=== PATIENT | male | born 1945 | race Caucasian/White ===

== ENCOUNTER 2017-03-18 08:30 | Day surgery (SDC) | payer MEDICARE, OTHER ==
[~2017-03-18] VITALS: Ht 172.7 cm; Wt 94.0 kg
[2017-03-18] VITALS (8 sets, daily range): BP systolic 118–135; BP diastolic 61–81; PULSE 69–83; RESP 15–25; O2SAT 93–100
[~2017-03-18 08:30] MED LIST: AMLO5TAB2 PO; ASPI-973 PO; CETI10CA PO; CITA20TA11 PO; DONE10TA42 PO; LISI-571 PO; Levofloxacin 500 mg/100 mL D5W IV SCH; MEMA1CAP3 PO; METH5TAB5 PO; PYRI60TA2 PO; RED600CA2 PO; TADA20TA PO; TIOT18CA3 IH; VALA1000 PO
[2017-03-18] MEDS ORDERED: fentaNYL-PF 50 mCg/mL 2 mL Inj ONE (08:31)
[2017-03-18] MEDS ORDERED: Propofol 10,000 mCg/mL 20 mL Inj ONE (08:31)
[2017-03-18] MEDS ORDERED: Ondansetron 2 mg/mL 2 mL Inj ONE (08:31)
[2017-03-18] MEDS ORDERED: Dexamethasone 4 mg/mL Inj ONE (08:31)
[2017-03-18] MEDS ORDERED: Lidocaine PF 1% 30 mL Inj ONE (08:31)
[2017-03-18] MEDS: Lactated Ringer's 1,000 ML IV SCH ×2 (09:19→10:51)
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
[2017-03-18] MEDS ORDERED: Lactated Ringer's 500 ML IV PRN (10:38)
[2017-03-18] MEDS ORDERED: Lactated Ringer's 1,000 ML IV SCH (10:38)
[2017-03-18] MEDS ORDERED: Labetalol 5 mg/mL 4 mL Inj IV PRN (10:40)
[2017-03-18] MEDS ORDERED: fentaNYL-PF 50 mCg/mL 2 mL Inj IVPUSH PRN (10:40)
[2017-03-18] MEDS ORDERED: EPHEDrine Sulfate 50 mg/mL Inj IM PRN (10:40)
[2017-03-18] MEDS ORDERED: hydrALAZINE 20 mg/mL Inj IVPUSH PRN (10:40)
[2017-03-18] MEDS ORDERED: HYDROmorphone 1 mg/mL Inj IVPUSH PRN (10:40)
[2017-03-18] MEDS ORDERED: Atropine 0.4 mg/mL Inj IVPUSH PRN (10:40)
[2017-03-18] MEDS ORDERED: EPHEDrine Sulfate 50 mg/mL Inj IVPUSH PRN (10:40)
[2017-03-18] MEDS ORDERED: Phenylephrine 10,000 mCg/mL Inj IVPUSH PRN (10:40)
[2017-03-18] MEDS ORDERED: Ondansetron 2 mg/mL 2 mL Inj IVPUSH PRN (10:40)
[2017-03-18] MEDS ORDERED: Belladonna Alk-Opium 60 mg Rectal Suppository RECTAL ONE ×2 (11:02→11:20)
--- NOTE | 2017-03-18 11:32 | PCM.SURGPO ---
Immediate Operative Note Date of Surgery: March 18, 2017 Pre Operative Diagnosis L ureteral calculus Post Operative Diagnosis L ureteral calculus Procedure Cystoscopy, L ureteroscopy with basket extraction of calculus, and L ureteral stent placement Surgeon and Academy Education Director Surgeon: Deon Merida MD Assistants: None Findings Cystoscopy revealed mild-moderate bilobar prostatic hypertrophy, mild- moderately trabeculated bladder, no bladder tumors or lesions, and B/L ureteral orifices in normal position. L semi-rigid ureteroscopy revealed an approx. 3mm calculus in L distal ureter. Basket extraction of calculus was performed. L ureteral stent was placed. Complications There were no periprocedural complications identified. Surgical Specimen Removed: Yes Specimen sent to Pathology: No Surgical Specimen description: L ureteral calculus sent to lab for stone analysis Anesthetic Administered: GA Grafts, Implants: Other (28cm x 5F L ureteral JJ stent (no string)) Output, Estimated Blood Loss: <5 Blood Admin during surgery: No Additional information Patient to return to see me in 5-8 days for cystoscopy, stent removal, and post- op visit. Deon Merida MD March 18, 2017 11:31
--- NOTE | 2017-03-18 11:38 | PCM.DISURG ---
Surgical Discharge Instruction Date of Service March 18, 2017 Dates of Hospitalization Date of Hospital Admission March 18, 2017 Providers Admitting Physician: Deon Merida MD Primary Care Physician: Ta Richardson MD Attending Physician: Deon Merida MD Discharge Diagnosis Discharge Diagnosis L ureteral calculus Post Operative diagnosis L ureteral calculus Diet Discharge Diet: No restrictions, Other (Drink at least 10-12 8oz. glasses (3 liters) of fluids per day) Activity Discharge Activity-General: Try not to overdue, No driving while taking narcotic Dressing and Incisional Care Hygiene: March shower Follow Up Plan Follow-up Provider (F9): Deon Merida MD Follow-up appointment: Days (5-8 days for cystoscopy, stent removal, and post- op visit) Call your provider for: Fever, Chills, Vomiting, Other (Pain uncontrolled by pain medications) Deon Merida MD March 18, 2017 11:38
--- NOTE | 2017-03-18 11:40 | PCM.ANEP1 ---
Post Anesthesia Phase 1 PACU Phase 1 Assessment Date of Service: March 18, 2017 Vital Signs Vital Signs Date Time Temp Pulse Resp B/P Pulse Ox O2 Delivery O2 Flow Rate FiO2 03/18/17 11:35 74 16 126/73 93 Room Air 03/18/17 11:30 36.5 82 17 135/66 96 Room Air 03/18/17 11:25 83 15 118/73 100 Room Air 03/18/17 11:22 36.6 82 25 123/76 95 Room Air 03/18/17 08:59 36.5 69 17 135/66 95 Room Air Anesthetic Administered: GA Level of Alertness: Awake, talking CHOUDHURY's with Equal Strength: Yes Pain: No Nausea or Vomiting: No Cardiovascular Function and Hy: Yes Oxygen Delivery: Room Air Lungs: Clear to Auscultation, Diminished Dermatome Level: Full Sensation Complications: No Follow up Care: No Patient Instructions Provided: Yes Sanchez Suero MD March 18, 2017 11:40
[2017-03-18] MEDS ORDERED: HYDROcodone-APAP 5-325 mg Tablet PO PRN (11:45)
--- NOTE | 2017-03-18 13:29 | DRSVH ---
PROCEDURE: X-RAY RETROGRADE UROGRAPHY INDICATIONS: STENT PLACEMENT LEFT KIDNEY TECHNIQUE: 3 intra-operative images acquired by the Urology service. COMPARISON: [facility], CR, ABDOMEN 1 VIEW, 03/11/2017, 15:00. [facility], CT, KIDNEY/ URE TER/BLADDER, 03/07/2017, 13:11. FINDINGS: Examination is limited to 3 submitted images. Within these limits there is opacification of the left renal collecting system which is normal. No definite intraluminal filling defects are se en. No extravasation. Ureteral stent in place. IMPRESSION: Grossly normal appearance of the left renal collecting system and placement of ureteral s tent. Dictated by: Morro LINDSAY Interpreted: Andrew Nuñez MD on 03/18/2017 at 13:27 Transcribed by: NATALIE on 03/18/2017 at 13:28 Approved by: Russ Nuñez M.D. on 03/18/2017 at 13:46
--- NOTE | 2017-03-19 15:25 | OP ---
[address] [address] OPERATIVE REPORT PATIENT: RADHA STATON : 1945 MR#: [id number] ADMIT: 03/18/2017 JOB ID: [id number] DATE OF SURGERY: 03/18/2017 PREOPERATIVE DIAGNOSIS(ES): Left ureteral calculus. POSTOPERATIVE DIAGNOSIS(ES): Left ureteral calculus. PROCEDURE: Cystoscopy, left ureteroscopy with basket extraction of calculus, and left ureteral stent placement. SURGEON: Deon Merida MD. TILT WALL SUPERVISOR: None. ANESTHESIA: General. ESTIMATED BLOOD LOSS: Less than 5 mL. SPECIMENS: Left ureteral calculus sent to the lab for stone analysis. DRAINS: 28 cm x 5-[place] left ureteral double-J stent. COMPLICATIONS: None. CONDITION: Stable. FINDINGS: Cystoscopy revealed mild to moderate bilobar prostatic hypertrophy, mild to moderately trabeculated bladder, no bladder tumors or lesions, and bilateral ureteral orifices in normal position. Left semi-rigid ureteroscopy revealed an approximately 3 mm calculus in the left distal ureter. Basket extraction of calculus was performed. Left ureteral stent was placed. INDICATIONS: The patient is a 71-year-old male with a left ureteral calculus. The patient now presents for cystoscopy, left ureteroscopy, possible basket extraction of calculus, possible Holmium laser lithotripsy, and left ureteral stent placement. DESCRIPTION OF PROCEDURE: The patient was brought to the operating room and placed supine on the operating room table. The patient was given Levaquin IV antibiotics. Sequential compression device boots were placed. General anesthesia was administered. The patient was brought down into dorsal lithotomy position. Patient was prepped and draped in standard surgical fashion. A 22-[place] rigid cystoscope was placed into the distal urethra without difficulty. Cystoscopy revealed mild to moderate bilobar prostatic hypertrophy, mild to moderately trabeculated bladder, no bladder tumors or lesions, and bilateral ureteral orifices in normal position. An angle- tip UltraTrack guidewire was passed into the left ureteral orifice and passed up the left ureter into the left renal pelvis. Cystoscope was removed from the patient. Guidewire was secured to the drape with a Chikis clamp as a safety wire. A semi-rigid ureteroscope was passed through the urethra and bladder and into the left ureteral orifice with the assistance of a PTFE guidewire. Left semi-rigid ureteroscopy revealed an approximately 3 mm calculus in the left distal ureter. Basket extraction of the calculus was performed using a 2.2-Tu[place]uan Inivataorce nitinol helical basket. The left ureteral calculus was sent to the laboratory for stone analysis. The semi-rigid ureteroscope was passed through the urethra and bladder and into the left ureteral orifice with the assistance of the PTFE guidewire. The left distal ureter was visualized. No other calculi were seen. The semi-rigid ureteroscope was removed from the patient. The rigid cystoscope was passed over the safety guidewire through the urethra and into the bladder. A 5-[place] open-ended catheter was passed over the guidewire and through the cystoscope and passed up the left ureter into the left renal pelvis. The guidewire was removed. A small amount of contrast was instilled into the left renal collecting system via the open-ended catheter to illuminate the left renal collecting system to aid in stent placement. The UltraTrack guidewire was passed through the open-ended catheter up the left ureter into the left renal pelvis. Open-ended catheter was removed. A 28 cm x 5-[place] ureteral double J stent, with the stent string removed prior to stent placement, was passed over the guidewire through the cystoscope and passed up the left ureter and placed so that the proximal pigtail was located in the left renal pelvis and the distal pigtail was located in the bladder. Guidewire was removed. Correct positioning of the stent was confirmed both fluoroscopically and under direct visualization using the cystoscope. Good efflux of contrast could be seen draining from the distal end of the stent into the bladder, further confirming correct stent positioning. The bladder was drained via the cystoscope. Cystoscope was removed from the patient. The skin was cleaned and dried. The patient was placed in supine position. Patient was awakened from general anesthesia and transferred to the recovery room in stable condition. The patient tolerated the procedure well. Plan is for the patient to return to see me in the office in 5-8 days for cystoscopy, stent removal and postoperative visit. SHANTELL
[2017-03-26 11:10] LABS: Stone Color Brown (.)
== END 2017-03-18 23:59 | disposition home or self-care (01) ==
LOC: SAS 08:30
PROVIDERS: ATTEND Urology
DX: N13.2 Hydronephrosis with renal and ureteral calculous obstruction (principal); N40.1 Benign prostatic hyperplasia with lower urinary tract symptoms; R39.198 Other difficulties with micturition; R31.29 Other microscopic hematuria; I10 Essential (primary) hypertension; I25.10 Atherosclerotic heart disease of native coronary artery without angina pectoris; E03.9 Hypothyroidism, unspecified; J44.9 Chronic obstructive pulmonary disease, unspecified; J45.909 Unspecified asthma, uncomplicated; F03.90 Unspecified dementia, unspecified severity, without behavioral disturbance, psychotic disturbance, mood disturbance, and anxiety; F32.9 Major depressive disorder, single episode, unspecified; M19.90 Unspecified osteoarthritis, unspecified site; G47.33 Obstructive sleep apnea (adult) (pediatric); Z95.5 Presence of coronary angioplasty implant and graft; Z79.82 Long term (current) use of aspirin; Z87.891 Personal history of nicotine dependence; Z87.442 Personal history of urinary calculi
CPT/HCPCS: 52332; 52352; 74420; 82360; C2617; J1100; J2405; J3010; J7120; Q9967